=== PATIENT | female | born 1940 | race Caucasian/White ===

== ENCOUNTER → 2017-01-26 | Outpatient (CLI) | payer MEDICARE ==
[2017-01-26 09:22] LABS: ASPARTATE AMINO TRANSFERASE 11 U/L (15-37); BLOOD UREA NITROGEN 14 mg/dL (7-18)
[2017-01-26 09:32] LABS: HIV 1&2 ANTIBODY SCREEN Nonreactive (Nonreactive); HIV-1 p24 ANTIGEN Nonreactive (Nonreactive)
== END | disposition home or self-care (01) ==
LOC: LAB 08:50
PROVIDERS: ATTEND Family Medicine
DX: E78.5 Hyperlipidemia, unspecified (principal); G62.9 Polyneuropathy, unspecified
CPT/HCPCS: 36415; 80053; 80061; 82607; 83036; 84443; 85651; 86592; 86703; 87899; G0435